=== PATIENT | male | born 1955 | race Caucasian/White ===

== ENCOUNTER → 2020-11-02 01:36 | Outpatient (CLI) | payer MEDICARE, OTHER, SELFPAY ==
[2020-11-02 19:56] LABS: SARS-CoV-2 RNA PCR Negative
== END ==
PROVIDERS: PCP Emergency Medicine; Visit Provider Internal Medicine Gastroenterology
DX: Z01.812 Encounter for preprocedural laboratory examination (principal); Z20.822 Contact with and (suspected) exposure to COVID-19
CPT/HCPCS: C9803; U0003; U0005

== ENCOUNTER 2020-11-05 02:19 | Day surgery (SDC) | payer MEDICARE, OTHER, SELFPAY ==
[2020-10-29 09:43] VITALS: BMI 26.5
[2020-11-05 06:21] VITALS: BP 103/84; PULSE 82; RESP 18; TEMP 36.4; O2SAT 96; BMI 25.9
[2020-11-05] MEDS: LACTATED RINGERS 1,000 ML 150 ML IV CONT (06:29)
--- NOTE | 2020-11-05 07:18 | P.PNAN_ITS ---
Anes - Initial Pre Proc Eval Procedure: Operation Date: 11/05/20 07:30 Proposed Procedures p Screening Colonoscopy - Nithin Noe MD Date/Time: 11/05/20 07:18 Surgeon: Nithin Noe MD Pre Op Diagnosis: family hx colon CA Patient Data Age: 65 Gender: M Height: 5 ft 10 in Weight: 81.9 kg Last Vital Signs Temp 97.5 F L 11/05/20 06:21 Pulse 82 11/05/20 06:21 Resp 18 11/05/20 06:21 BP 103/84 11/05/20 06:21 Pulse Ox 96 11/05/20 06:21 Allergies Allergy/AdvReac Type Severity Reaction Status Date / Time No Known Allergies Allergy Mild Verified 11/05/20 06:20 Home Medications Medication Instructions Recorded Confirmed Type temazepam 15 mg capsule 15 mg PO QHS PRN #30 cap 10/14/20 10/29/20 Rx Adults Multivitamin 1 tab-cap PO DAILY 10/29/20 10/29/20 History ferrous sulfate 324 mg PO DAILY 10/29/20 10/29/20 History Patient hx anesthesia problems: none Family hx anesthesia problems: none PMFSH Past Medical History Medical History Alcoholic hepatitis Erectile dysfunction Family history of colon cancer in mother GERD (gastroesophageal reflux disease) GERD without esophagitis History of colon polyps Normal colonoscopy 05/2012 Venereal disease Surgical History Surgical History History of hip surgery left - 2007 History of knee surgery History of right knee surgery Right knee - History of surgery on arm Left forearm - 2007 [place] teeth extracted Family History Family History Mother Colon cancer Father Lung cancer Social History Social History Social History: Patient drinks 2 cups of caffeine per day. Smoking status: Never smoker Second hand tobacco smoke exposure: No Smoking end date: 06/14/13 Additional smoking assessment comments: nicotine gum 2 mg - 5 to 6 a day Alcohol intake: never Substance use: never Substance use type: does not use Living arrangements: alone Gender identity (if verbalized by the patient): Male Spiritual care concerns: No Anes - Eval Final PreProcedure Day of Procedure 11/05/20 07:18 Patient weight: normal Heart: regular rate and rhythm Lungs: clear to auscultation Airway: Mallampati scale class II Neurological: alert and oriented Last oral intake: >/= 8 hours ASA classification: II Emergent: no Anesthetic plan: proceed Anesthesia type and monitoring: general GIVS and standard monitoring Informed Consent: The patient's anesthetic plan and its attendant risks and benefits were discussed with the patient/family/POA. Questions were solicited and answers provided to the satisfaction of the patient/family/POA.
--- NOTE | 2020-11-05 07:30 | PM.HPGS ---
History of Present Illness History of Present Illness Consent: Risks, benefits, and alternatives have been discussed and questions answered. Patient agrees to proceed with procedure. Chief complaint: family hx colon CA Narrative: Alejo Babb is a 65 year old male with mother colon cancer, his las colonoscopy ~ 8 years ago. Review of Systems Constitutional: Constitutional: Denies headache(s) and Denies weakness Eyes: Eyes: Denies blurry vision ENT: Reports Normal hearing present, Denies headache(s) and Denies neck pain Cardiovascular: Cardiovascular: Denies chest pain and Denies dyspnea Respiratory: Respiratory: Denies dyspnea Gastrointestinal: Gastrointestinal: Reports no additional gastrointestinal complaints Genitourinary: Genitourinary: Denies dysuria Musculoskeletal: Musculoskeletal: Denies neck pain Integumentary/Breasts: Skin/Breast: Denies dry skin Neurologic: Reports Normal hearing present, Denies headache(s) and Denies weakness Psychiatric: Psychiatric: Denies anxiety Endocrine: Endocrine: Denies change in body appearance Hematologic/Lymphatic: Hematologic/Lymphatic: Denies easy bleeding Allergic/Immunologic: Allergic/Immunologic: Denies urticaria PMFSH Past Medical History Medical History Alcoholic hepatitis Erectile dysfunction Family history of colon cancer in mother GERD (gastroesophageal reflux disease) GERD without esophagitis History of colon polyps Normal colonoscopy 05/2012 Venereal disease Surgical History Surgical History History of hip surgery left - 2007 History of knee surgery History of right knee surgery Right knee - History of surgery on arm Left forearm - 2007 [place] teeth extracted Family History Family History Mother Colon cancer Father Lung cancer Social History Social History Social History: Patient drinks 2 cups of caffeine per day. Smoking status: Never smoker Second hand tobacco smoke exposure: No Smoking end date: 06/14/13 Additional smoking assessment comments: nicotine gum 2 mg - 5 to 6 a day Alcohol intake: never Substance use: never Substance use type: does not use Living arrangements: alone Gender identity (if verbalized by the patient): Male Spiritual care concerns: No Meds Home Medications and Allergies Home Medications Medication Instructions Recorded Confirmed Type temazepam 15 mg capsule 15 mg PO QHS PRN #30 cap 10/14/20 10/29/20 Rx Adults Multivitamin 1 tab-cap PO DAILY 10/29/20 10/29/20 History ferrous sulfate 324 mg PO DAILY 10/29/20 10/29/20 History Allergies Allergy/AdvReac Type Severity Reaction Status Date / Time No Known Allergies Allergy Mild Verified 11/05/20 06:20 Vital Signs Vital Signs - 24 hr 11/05/20 06:21 Temperature 97.5 F L Pulse Rate 82 Respiratory Rate 18 Blood Pressure 103/84 Pulse Oximetry 96 Exam Const: General: comfortable and no acute distress HENMT: General nose exam: Normal nares present Eyes: General: appearance normal, both eyes and all related structures Neck: Neck: no JVD Resp: Auscultation: clear to auscultation bilaterally Cardio: Rate: regular rate Rhythm: regular rhythm GI: Inspection: non-distended GI Palp: Yes Soft to palpation Skin: General skin exam: normal color Neuro: General: gait normal Speech: normal speech Extrem: General: normal to inspection Psych: Mental Status: mental status grossly normal Assessment and Plan Assessment and plan (1) Family history of colon cancer in mother: Code(s): Z80.0 - Family history of malignant neoplasm of digestive organs Status: Acute Assessment and Plan: colonoscopy
[2020-11-05 07:49] VITALS: BP 94/71; PULSE 68; RESP 20; O2SAT 96
[2020-11-05 07:59] VITALS: BP 100/75; PULSE 60; RESP 26; O2SAT 96
[2020-11-05 08:09] VITALS: BP 118/78; PULSE 51; RESP 23; O2SAT 96
== END 2020-11-05 08:21 | disposition home or self-care (01) ==
PROVIDERS: PCP Emergency Medicine; Visit Provider Internal Medicine Gastroenterology
PROC: 0DJD8ZZ Inspection of Lower Intestinal Tract, Via Natural or Artificial Opening Endoscopic (ICD-10-PCS; CPT 45378; principal; 2020-11-05 07:30)
DX: Z12.11 Encounter for screening for malignant neoplasm of colon (principal); K64.8 Other hemorrhoids; Z80.0 Family history of malignant neoplasm of digestive organs; K70.10 Alcoholic hepatitis without ascites; K21.9 Gastro-esophageal reflux disease without esophagitis; Z86.010 Personal history of colon polyps; Z87.891 Personal history of nicotine dependence; Z86.19 Personal history of other infectious and parasitic diseases
CPT/HCPCS: G0105; J2001; J2704; J7120

== ENCOUNTER 2021-02-04 10:40 | Outpatient (CLI) | payer MEDICARE, OTHER, SELFPAY ==
[2021-02-04 11:37] LABS: Basophils Absolute Auto 0.1 K/mm3 (0.0-0.1); Basophils Percent Auto 0.7 % (0.2-1.2); Eosinophils Absolute Auto 0.5 K/mm3 (0-0.3); Eosinophils Percent Auto 6.9 % (0-4.4); Hematocrit 41.2 % (42.0-52.0); Hemoglobin 14.1 g/dL (14.0-18.0); Immature Granulocyte Absolute 0.01 K/mm3 (0.00-0.031); Immature Granulocyte Percent A 0.1 % (0-0.5); Lymphocytes Absolute Auto 1.46 K/mm3 (0.9-3.2); Lymphocytes Percent Auto 21.9 % (18.3-44.2); Mean Corpuscular HGB Conc 34.2 g/dl (32-36); Mean Corpuscular Hemoglobin 31.3 pg (26-34); Mean Corpuscular Volume 91.4 fl (80-100); Mean Platelet Volume 8.9 fl (7.4-10.4); Monocytes Absolute Auto 0.7 K/mm3 (0.1-0.6); Monocytes Percent Auto 10.6 % (2.6-8.5); Neutrophils Percent Auto 59.8 % (45.5-73.1); Platelet Count Result 256 k/mm3 (150-375); Red Blood Count 4.51 M/mm3 (4.6-6.20); Red Cell Distribution Width 12.2 % (11.5-14.5); White Blood Count 6.7 K/mm3 (4.5-10.0)
[2021-02-04 11:47] LABS: Alanine Aminotransferase 12 U/L (4-50); Albumin Level 4.1 g/dL (3.5-5.1); Alkaline Phosphatase 42 U/L (38-126); Anion Gap 7 mmol/L (8-16); Aspartate Amino Transferase 23 U/L (17-59); Bilirubin,Total 0.3 mg/dL (0.2-1.3); Blood Urea Nitrogen 9 mg/dL (9-20); Calcium 8.6 mg/dL (8.4-10.2); Carbon Dioxide 25 mmol/L (22-30); Chloride 101 mmol/L (98-107); Cholesterol 127 mg/dL (0-200); Estimated Glomerular Filt Rate > 60; Glucose 94 mg/dL (65-110); HDL Direct 42 mg/dL; Potassium 4.5 mmol/L (3.4-5.0); Sodium 133 mmol/L (137-145); Triglycerides 58 mg/dL (<150)
[2021-02-04 11:59] LABS: LDL Cholesterol Direct 58 mg/dL
[2021-02-04 12:17] LABS: Prostate Specific Antigen 2.4 ng/mL (< OR = 4.0)
== END 2021-02-04 10:41 | disposition home or self-care (01) ==
PROVIDERS: PCP Emergency Medicine; Visit Provider Emergency Medicine
DX: Z12.5 Encounter for screening for malignant neoplasm of prostate (principal); N52.9 Male erectile dysfunction, unspecified; Z13.220 Encounter for screening for lipoid disorders; Z51.81 Encounter for therapeutic drug level monitoring; Z79.899 Other long term (current) drug therapy
CPT/HCPCS: 36415; 80053; 80061; 84153; 84443; 85025; G0103

== ENCOUNTER 2021-08-12 10:21 | Outpatient (CLI) | payer MEDICARE, OTHER, SELFPAY ==
[2021-08-12 10:49] LABS: Alanine Aminotransferase 13 U/L (4-50); Albumin Level 4.1 g/dL (3.5-5.1); Alkaline Phosphatase 49 U/L (38-126); Anion Gap 7 mmol/L (8-16); Aspartate Amino Transferase 24 U/L (17-59); Bilirubin,Total 0.2 mg/dL (0.2-1.3); Blood Urea Nitrogen 11 mg/dL (9-20); Calcium 8.4 mg/dL (8.4-10.2); Carbon Dioxide 27 mmol/L (22-30); Chloride 104 mmol/L (98-107); Cholesterol 152 mg/dL (0-200); Estimated Glomerular Filt Rate > 60; Glucose 120 mg/dL (65-110); HDL Direct 44 mg/dL; Potassium 4.4 mmol/L (3.4-5.0); Sodium 138 mmol/L (137-145); Triglycerides 84 mg/dL (<150)
[2021-08-12 11:00] LABS: LDL Cholesterol Direct 76 mg/dL
== END 2021-08-12 10:22 | disposition home or self-care (01) ==
PROVIDERS: PCP Emergency Medicine; Visit Provider Emergency Medicine
DX: N52.9 Male erectile dysfunction, unspecified (principal); Z13.220 Encounter for screening for lipoid disorders
CPT/HCPCS: 36415; 80053; 80061

== ENCOUNTER 2021-08-16 11:26 | Outpatient (CLI) | payer MEDICARE, OTHER, SELFPAY ==
[2021-08-16 12:02] LABS: Hemoglobin A1C 5.1 % (<5.7)
== END 2021-08-16 11:27 | disposition home or self-care (01) ==
PROVIDERS: PCP Emergency Medicine; Visit Provider Emergency Medicine
DX: R73.09 Other abnormal glucose (principal)
CPT/HCPCS: 36415; 83036

== ENCOUNTER 2021-10-08 01:06 | Day surgery (SDC) | payer MEDICARE, OTHER, SELFPAY ==
[2021-09-30 09:33] VITALS: BMI 27.3
[2021-10-08 08:58] VITALS: BP 98/57; PULSE 57; RESP 18; TEMP 36.2; O2SAT 97; BMI 26.6
[2021-10-08] MEDS: LACTATED RINGERS 1,000 ML 150 ML IV CONT (09:15)
--- NOTE | 2021-10-08 10:04 | WPDANESEPPF ---
Anes - Initial Pre Proc Eval Procedure: Operation Date: 10/08/21 10:00 Proposed Procedures p Esophagogastroduodenoscopy - Nithin Noe MD Date/Time: 10/08/21 10:04 Surgeon: Nithin Noe MD Pre Op Diagnosis: dysphagia Patient Data Age: 66 Gender: M Height: 1.78 m Weight: 84.1 kg Last Vital Signs Temp 97.2 F L 10/08/21 08:58 Pulse 57 L 10/08/21 08:58 Resp 18 10/08/21 08:58 BP 98/57 L 10/08/21 08:58 Pulse Ox 97 10/08/21 08:58 Allergies Allergy/AdvReac Type Severity Reaction Status Date / Time No Known Allergies Allergy Mild Verified 10/08/21 09:06 Home Medications Medication Instructions Recorded Confirmed Type Adults Multivitamin 1 tab-cap PO DAILY 10/29/20 10/08/21 History ferrous sulfate 324 mg PO DAILY 10/29/20 10/08/21 History esomeprazole magnesium 40 mg 40 mg PO DAILY #30 cap 08/25/21 10/08/21 Rx capsule,delayed release fish [id number] C-vit E 1 g PO DAILY 09/30/21 10/08/21 History Patient hx anesthesia problems: none Family hx anesthesia problems: none Results Review: All pre-operative results and documents have been reviewed as part of the pre-operative evaluation. [facility] Past Medical History Medical History Alcoholic hepatitis Erectile dysfunction Family history of colon cancer in mother GERD (gastroesophageal reflux disease) GERD without esophagitis History of colon polyps Normal colonoscopy 05/2012 Venereal disease Surgical History Surgical History History of hip surgery left - 2007 History of knee surgery History of right knee surgery Right knee - History of surgery on arm Left forearm - 2007 [place] teeth extracted Family History Family History Mother Colon cancer Father Lung cancer Social History Social History Social History: Patient drinks 2 cups of caffeine per day. Smoking packs per day: 1 Smoking cigarettes per day: 20.0 Years smoked: 35 Smoking pack-years: 35.00 Smoking status: Former smoker Tobacco type: cigarettes Second hand tobacco smoke exposure: No Smoking end date: 06/14/13 Additional smoking assessment comments: nicotine gum 2 mg - 5 to 6 a day Alcohol intake: never Alcohol use details: quit drinking around 2012 Substance use: never Substance use type: does not use Living arrangements: alone Gender identity (if verbalized by the patient): Male Sexual Orientation (if Verbalized by the Patient): Straight or Heterosexual Spiritual care concerns: No Anes - Eval Final PreProcedure Day of Procedure 10/08/21 10:04 Patient weight: normal Heart: regular rate and rhythm Lungs: clear to auscultation Airway: Mallampati scale class II Neurological: alert and oriented Last oral intake: >/= 8 hours ASA classification: II Emergent: no Anesthetic plan: proceed Anesthesia type and monitoring: general GIVS and standard monitoring Results Review: All pre-operative results and documents have been reviewed as part of the pre-operative evaluation. Informed Consent: The patient's anesthetic plan and its attendant risks and benefits were discussed with the patient/family/POA. Questions were solicited and answers provided to the satisfaction of the patient/family/POA.
--- NOTE | 2021-10-08 10:23 | PM.HPGS ---
History of Present Illness History of Present Illness Consent: Risks, benefits, and alternatives have been discussed and questions answered. Patient agrees to proceed with procedure. Chief complaint: dysphagia Narrative: Alejo Babb is a 66 year old male with gerd using nexium as needed (not every day because was having diarrhea), lately with more dysphagia to solids. Review of Systems Constitutional: Constitutional: Denies headache(s) and Denies weakness Eyes: Eyes: Denies blurry vision ENT: Reports Normal hearing present, Denies headache(s) and Denies neck pain Cardiovascular: Cardiovascular: Denies chest pain and Denies dyspnea Respiratory: Respiratory: Denies dyspnea Gastrointestinal: Gastrointestinal: Reports no additional gastrointestinal complaints Genitourinary: Genitourinary: Denies dysuria Musculoskeletal: Musculoskeletal: Denies neck pain Integumentary/Breasts: Skin/Breast: Denies dry skin Neurologic: Reports Normal hearing present, Denies headache(s) and Denies weakness Psychiatric: Psychiatric: Denies anxiety Endocrine: Endocrine: Denies change in body appearance Hematologic/Lymphatic: Hematologic/Lymphatic: Denies easy bleeding Allergic/Immunologic: Allergic/Immunologic: Denies urticaria PMFSH Past Medical History Medical History Alcoholic hepatitis Erectile dysfunction Family history of colon cancer in mother GERD (gastroesophageal reflux disease) GERD without esophagitis History of colon polyps Normal colonoscopy 05/2012 Venereal disease Surgical History Surgical History History of hip surgery left - 2007 History of knee surgery History of right knee surgery Right knee - History of surgery on arm Left forearm - 2007 [place] teeth extracted Family History Family History Mother Colon cancer Father Lung cancer Social History Social History Social History: Patient drinks 2 cups of caffeine per day. Smoking packs per day: 1 Smoking cigarettes per day: 20.0 Years smoked: 35 Smoking pack-years: 35.00 Smoking status: Former smoker Tobacco type: cigarettes Second hand tobacco smoke exposure: No Smoking end date: 06/14/13 Additional smoking assessment comments: nicotine gum 2 mg - 5 to 6 a day Alcohol intake: never Alcohol use details: quit drinking around 2012 Substance use: never Substance use type: does not use Living arrangements: alone Gender identity (if verbalized by the patient): Male Sexual Orientation (if Verbalized by the Patient): Straight or Heterosexual Spiritual care concerns: No Meds Home Medications and Allergies Home Medications Medication Instructions Recorded Confirmed Type Adults Multivitamin 1 tab-cap PO DAILY 10/29/20 10/08/21 History ferrous sulfate 324 mg PO DAILY 10/29/20 10/08/21 History esomeprazole magnesium 40 mg 40 mg PO DAILY #30 cap 08/25/21 10/08/21 Rx capsule,delayed release fish [id number] C-vit E 1 g PO DAILY 09/30/21 10/08/21 History Allergies Allergy/AdvReac Type Severity Reaction Status Date / Time No Known Allergies Allergy Mild Verified 10/08/21 09:06 Vital Signs Vital Signs - 24 hr 10/08/21 08:58 Temperature 97.2 F L Pulse Rate 57 L Respiratory Rate 18 Blood Pressure 98/57 L Pulse Oximetry 97 Exam Const: General: comfortable and no acute distress HENMT: General nose exam: Normal nares present Eyes: General: appearance normal, both eyes and all related structures Neck: Neck: no JVD Resp: Auscultation: clear to auscultation bilaterally Cardio: Rate: regular rate Rhythm: regular rhythm GI: Inspection: non-distended GI Palp: Yes Soft to palpation Skin: General skin exam: normal color Neuro: General: gait cely
[2021-10-08 10:39] VITALS: BP 107/66; PULSE 44; RESP 21; O2SAT 97
[2021-10-08 10:49] VITALS: BP 116/69; PULSE 44; RESP 25; O2SAT 97
[2021-10-08 10:59] VITALS: BP 120/68; PULSE 49; RESP 21; O2SAT 100
== END 2021-10-08 11:09 | disposition home or self-care (01) ==
PROVIDERS: PCP Emergency Medicine; Visit Provider Internal Medicine Gastroenterology
PROC: 0DJ08ZZ Inspection of Upper Intestinal Tract, Via Natural or Artificial Opening Endoscopic (ICD-10-PCS; CPT 43235; principal; 2021-10-08 10:00)
DX: K21.9 Gastro-esophageal reflux disease without esophagitis (principal); K22.2 Esophageal obstruction; K29.70 Gastritis, unspecified, without bleeding; Z87.891 Personal history of nicotine dependence
CPT/HCPCS: 43249; 43239; 88305; C1726; J2704; J7120

== ENCOUNTER 2022-02-25 11:33 | Outpatient (CLI) | payer MEDICARE, OTHER, SELFPAY ==
--- NOTE | ~2022-02-25 | XR_ITS ---
EXAM: XR knee LT 2V, XR knee RT 2V DATE: 02/25/2022 12:19 HISTORY: R52 - Pain, unspecified, no injury . COMPARISON: None available. FINDINGS: Decreased mineralization. No fracture or dislocation. No lytic or blastic lesion. Moderate left medial joint space narrowing. Moderate left tricompartmental osteophytosis and patellar subchon dral sclerosis. Quadriceps enthesopathy on the left. Right total knee arthroplasty, without complicat ion.. No erosion or periosteal change. Soft tissues within normal limits. Moderate right knee effusio n IMPRESSION: Uncomplicated right knee total arthroplasty. Moderate tricompartmental left knee osteoart hritis. Reviewed, dictated and finalized at location K. IMPRESSION: Uncomplicated right knee total arthroplasty. Moderate tricompartmen antoni left knee osteoarthritis.
--- NOTE | ~2022-02-25 | XR_ITS ---
EXAMINATION: XR lumbar spine 2-3V DATE: 02/25/2022 12:19 INDICATION: Low back pain TECHNIQUE: Anteroposterior and lateral views of the lumbar spine, and cone-down lateral view of the l umbosacral junction were obtained. COMPARISON: None. FINDINGS: Bone alignment is normal. There is no fracture. There is mild loss of intervertebral disc s pace height at L5-S1. Small degenerative osteophytes project from the anterior endplates of multiple vertebral bodies. There is moderate facet osteoarthritis of the lower lumbar spine. Calcified atheros clerosis is noted. IMPRESSION: 1. Mild lumbar spondylosis without acute findings. Reviewed, dictated and finalized at location B.
--- NOTE | ~2022-02-25 | XR_ITS ---
EXAMINATION: XR hip LT min 2V DATE: 02/25/2022 12:18 INDICATION: Left hip pain. TECHNIQUE: 2 views of left hip were obtained. COMPARISON: None. FINDINGS: There is a bipolar left hip hemiarthroplasty in near-anatomic alignment with cables around the proximal femur. No fracture. No periprosthetic lucencies to suggest loosening or infection. There are osteophytes of the acetabulum. There is heterotopic ossification adjacent to left hip. IMPRESSION: 1. Bipolar left hip hemiarthroplasty in near-anatomic alignment. 2. Mild left hip osteoarthritis. Reviewed, dictated and finalized at location A.
[2022-02-25 12:34] LABS: Basophils Absolute Auto 0.1 K/mm3 (0.0-0.1); Basophils Percent Auto 0.8 % (0.2-1.2); Eosinophils Absolute Auto 0.3 K/mm3 (0-0.3); Eosinophils Percent Auto 3.4 % (0-4.4); Hematocrit 42.1 % (42.0-52.0); Hemoglobin 14.3 g/dL (14.0-18.0); Immature Granulocyte Absolute 0.01 K/mm3 (0.00-0.031); Immature Granulocyte Percent A 0.1 % (0-0.5); Lymphocytes Absolute Auto 1.58 K/mm3 (0.9-3.2); Mean Corpuscular Hemoglobin 31.2 pg (26-34); Mean Corpuscular Volume 91.7 fl (80-100); Mean Platelet Volume 8.9 fl (7.4-10.4); Monocytes Absolute Auto 0.9 K/mm3 (0.1-0.6); Monocytes Percent Auto 11.5 % (2.6-8.5); Neutrophils Absolute Auto 4.8 K/mm3 (1.3-6.7); Neutrophils Percent Auto 63.2 % (45.5-73.1); Platelet Count Result 244 k/mm3 (150-375); Red Blood Count 4.59 M/mm3 (4.6-6.20); Red Cell Distribution Width 12.7 % (11.5-14.5); White Blood Count 7.5 K/mm3 (4.5-10.0)
[2022-02-25 12:45] LABS: Alanine Aminotransferase 21 U/L (6-50); Albumin Level 4.2 g/dL (3.5-5.1); Alkaline Phosphatase 51 U/L (38-126); Anion Gap 9 mmol/L (8-16); Aspartate Amino Transferase 40 U/L (17-59); Bilirubin,Total 0.7 mg/dL (0.2-1.3); Blood Urea Nitrogen 10 mg/dL (9-20); Calcium 8.9 mg/dL (8.4-10.2); Carbon Dioxide 25 mmol/L (22-30); Chloride 102 mmol/L (98-107); Estimated Glomerular Filt Rate > 60; Glucose 116 mg/dL (65-110); Potassium 4.8 mmol/L (3.4-5.0); Sodium 136 mmol/L (137-145)
[2022-02-25 13:14] LABS: Prostate Specific Antigen 2.7 ng/mL (< OR = 4.0)
== END 2022-02-25 11:34 | disposition home or self-care (01) ==
PROVIDERS: PCP Emergency Medicine; Visit Provider Emergency Medicine
DX: Z12.5 Encounter for screening for malignant neoplasm of prostate (principal); M16.12 Unilateral primary osteoarthritis, left hip; R53.83 Other fatigue; K21.9 Gastro-esophageal reflux disease without esophagitis; I70.0 Atherosclerosis of aorta; M47.816 Spondylosis without myelopathy or radiculopathy, lumbar region; M17.0 Bilateral primary osteoarthritis of knee; M25.461 Effusion, right knee
CPT/HCPCS: 36415; 72100; 73502; 73560; 80053; 84153; 85025; G0103

== ENCOUNTER 2023-02-24 13:27 | Outpatient (CLI) | payer MEDICARE, OTHER, SELFPAY ==
[2023-02-24 14:15] LABS: Hematocrit 41.4 % (42.0-52.0); Mean Corpuscular HGB Conc 33.8 g/dl (32-36); Mean Corpuscular Volume 91.8 fl (80-100); Mean Platelet Volume 9.2 fl (7.4-10.4); Platelet Count Result 264 k/mm3 (150-375); Red Blood Count 4.51 M/mm3 (4.6-6.20); Red Cell Distribution Width 12.5 % (11.5-14.5)
[2023-02-24 14:32] LABS: Alanine Aminotransferase 14 U/L (6-50); Albumin Level 4.1 g/dL (3.5-5.1); Alkaline Phosphatase 46 U/L (38-126); Anion Gap 9 mmol/L (8-16); Aspartate Amino Transferase 23 U/L (17-59); Bilirubin,Total 0.4 mg/dL (0.2-1.3); Blood Urea Nitrogen 10 mg/dL (9-20); Calcium 8.5 mg/dL (8.4-10.2); Carbon Dioxide 24 mmol/L (22-30); Chloride 102 mmol/L (98-107); Estimated Glomerular Filt Rate > 60; Glucose 101 mg/dL (65-110); Potassium 4.1 mmol/L (3.4-5.0); Sodium 135 mmol/L (137-145)
[2023-02-24 15:00] LABS: Prostate Specific Antigen 3.2 ng/mL (< OR = 4.0)
[2023-02-27 23:26] LABS: Vitamin D 1,25 (OH)2 Total 26 pg/mL (18-72); Vitamin D2 1,25 (OH)2 <8 pg/mL; Vitamin D3 1,25 (OH)2 26 pg/mL
== END 2023-02-24 13:28 | disposition home or self-care (01) ==
PROVIDERS: PCP Emergency Medicine; Visit Provider Emergency Medicine
DX: Z12.5 Encounter for screening for malignant neoplasm of prostate (principal); R53.83 Other fatigue; E55.9 Vitamin D deficiency, unspecified
CPT/HCPCS: 36415; 80053; 82652; 84153; 85027; G0103

== ENCOUNTER 2023-08-23 13:56 | Outpatient (CLI) | payer MEDICARE, OTHER, SELFPAY ==
[2023-08-23 15:02] LABS: Alanine Aminotransferase 11 U/L (6-50); Albumin Level 4.1 g/dL (3.5-5.1); Alkaline Phosphatase 61 U/L (38-126); Anion Gap 5 mmol/L (8-16); Aspartate Amino Transferase 23 U/L (17-59); Bilirubin,Total 0.8 mg/dL (0.2-1.3); Blood Urea Nitrogen 10 mg/dL (9-20); Calcium 8.5 mg/dL (8.4-10.2); Carbon Dioxide 26 mmol/L (22-30); Chloride 101 mmol/L (98-107); Estimated Glomerular Filt Rate > 60; Glucose 104 mg/dL (65-110); Potassium 3.9 mmol/L (3.4-5.0); Sodium 132 mmol/L (137-145)
[2023-08-23 17:03] LABS: Vitamin D 25 Hydroxy 45.8 ng/mL
== END 2023-08-23 13:57 | disposition home or self-care (01) ==
LOC: ANHLAB 13:59
PROVIDERS: PCP Emergency Medicine; Visit Provider Emergency Medicine
DX: E55.9 Vitamin D deficiency, unspecified (principal); R53.83 Other fatigue
CPT/HCPCS: 36415; 80053; 82306

== ENCOUNTER 2024-02-22 10:46 | Outpatient (CLI) | payer MEDICARE, OTHER, SELFPAY ==
[2024-02-22 11:25] LABS: Alanine Aminotransferase 11 U/L (6-50); Albumin Level 4.3 g/dL (3.5-5.1); Alkaline Phosphatase 58 U/L (38-126); Anion Gap 8 mmol/L (4-12); Aspartate Amino Transferase 32 U/L (17-59); Bilirubin,Total 0.5 mg/dL (0.2-1.3); Blood Urea Nitrogen 14 mg/dL (9-20); Calcium 8.8 mg/dL (8.4-10.2); Carbon Dioxide 29 mmol/L (22-30); Chloride 100 mmol/L (98-107); Estimated Glomerular Filt Rate > 60; Glucose 102 mg/dL (65-110); Potassium 4.6 mmol/L (3.4-5.0); Sodium 137 mmol/L (137-145)
[2024-02-22 11:59] LABS: Vitamin D 25 Hydroxy 35.3 ng/mL
== END 2024-02-22 10:47 | disposition home or self-care (01) ==
PROVIDERS: PCP Emergency Medicine; Visit Provider Emergency Medicine
DX: E78.5 Hyperlipidemia, unspecified (principal); E55.9 Vitamin D deficiency, unspecified
CPT/HCPCS: 36415; 80053; 82306

== ENCOUNTER 2024-03-10 10:15 | Outpatient (CLI) | payer MEDICARE, OTHER, SELFPAY ==
--- NOTE | ~2024-03-10 | XR_ITS ---
XR hand RT 2V Ordering provider: Jet Ospina MD History: . PAIN IN 4TH DIGIT PIP JOINT . Comparison: None. FINDINGS: BONES: No acute fracture or dislocation. Old boxer's fracture in the fifth metacarpal bone. Cystic ch anges in multiple carpal bones. JOINT SPACES: Severe osteoarthritic changes of the proximal interphalangeal joint of the fifth finger . Osteoarthritic changes of the first metacarpophalangeal joint and interphalangeal joint. Osteoarthr itic changes of the distal interphalangeal joints. SOFT TISSUES: Normal. IMPRESSION: No acute osseous abnormality right hand. Reviewed, dictated and finalized at location A.
== END 2024-03-10 10:16 | disposition home or self-care (01) ==
PROVIDERS: PCP Emergency Medicine; Visit Provider Emergency Medicine
DX: M79.644 Pain in right finger(s) (principal)
CPT/HCPCS: 73120

== ENCOUNTER 2024-03-16 13:58 | Outpatient (CLI) | payer MEDICARE, OTHER, SELFPAY ==
[2024-03-16 15:04] LABS: IFOB Positive Control Positive; Immunochemical Fecal Occult Bl Negative (N)
[2024-03-16 15:40] LABS: Toxigenic C. Diff NEGATIVE (NEGATIVE)
[2024-03-21 15:18] LABS: Fecal Fat, Ql Normal (Normal)
[2024-03-24 18:13] LABS: Calprotectin, Stool 40 mcg/g
[2024-03-24 19:28] LABS: Pancreatic Elastase, Stool >500 mcg/g
== END 2024-03-16 13:59 | disposition home or self-care (01) ==
LOC: ANHLAB 14:00
PROVIDERS: PCP Emergency Medicine; Visit Provider Nurse Practitioner Family
DX: R19.7 Diarrhea, unspecified (principal)
CPT/HCPCS: 82274; 82653; 82705; 83993; 87269; 87493

== ENCOUNTER 2024-03-21 07:50 | Outpatient (CLI) | payer MEDICARE, OTHER, SELFPAY | END 2024-03-21 07:51 | disposition home or self-care (01) | LOC: ANHAUDIO 07:52 | PROVIDERS: PCP Emergency Medicine; Visit Provider Emergency Medicine | DX: H90.3 Sensorineural hearing loss, bilateral (principal) | CPT/HCPCS: 92557; 92567 ==

== ENCOUNTER 2024-04-18 00:25 | Day surgery (SDC) | payer MEDICARE, OTHER, SELFPAY ==
[2024-04-10 16:06] VITALS: BMI 26.5
[2024-04-18 07:47] VITALS: BP 111/81; PULSE 71; RESP 18; TEMP 36.1; O2SAT 97; BMI 26.0
[2024-04-18] MEDS: LACTATED RINGERS 1,000 ML 150 ML IV CONT (07:55)
[2024-04-18] MEDS: BENZOCAINE (*SP) 60 ML SPRAY CAN (HURRICAINE) 1 SPRAY MUCOUS MEM (09:49)
--- NOTE | 2024-04-18 09:53 | PM.IMHP ---
H&P: HPI History of Present Illness Date/Time: 04/18/24 09:53 Chief Complaint: Dysphagia Narrative: the patient has been complaining of dysphagia for around 2 years. Last year a balloon dilatation of a Schatzki ring with temporary success. He has recurrent dysphagia Review of Systems Review of Systems: All systems reviewed & are unremarkable except as noted in HPI and below PMFSH Past Medical History Medical History (Updated 03/15/24 @ 10:37 by Crystal Dominguez APN-Marv) Alcoholic hepatitis Dysphagia Erectile dysfunction Esophageal ring Family history of colon cancer in mother GERD (gastroesophageal reflux disease) GERD without esophagitis History of colon polyps Normal colonoscopy 05/2012 Skin lesion Venereal disease Surgical History Surgical History History of hip surgery left - 2007 History of knee surgery History of right knee surgery Right knee - History of surgery on arm Left forearm - 2007 [place] teeth extracted Family History Family History Mother Colon cancer Father Lung cancer Social History Social History Social History: Patient drinks 2 cups of caffeine per day. Smoking packs per day: 1 Smoking cigarettes per day: 20.0 Years smoked: 35 Smoking pack-years: 35.00 Smoking status: Former smoker Tobacco type: cigarettes Second hand tobacco smoke exposure: No Smoking end date: 06/14/13 Additional smoking assessment comments: nicotine gum 2 mg - 5 to 6 a day Alcohol intake: former Drinks per week: 80 Alcohol use details: quit 2012 Substance use: never Substance use type: does not use Do You Feel Safe in your Home?: Yes Lack of Transportation: No Lack of Food: Never True Current Housing: I Have Housing Concerned About Future Housing: No Difficulty Paying Gas/Electric Bills: No Difficulty Paying for Meds: No Currently Unemployed: No Education: High School Diploma/GED Difficulty w/ Childcare or Family Care: No Living arrangements: alone Occupation/Education: retired Gender identity (if verbalized by the patient): Male Sexual Orientation (if Verbalized by the Patient): Straight or Heterosexual Spiritual care concerns: No Meds Home Medications and Allergies Home Medications Medication Instructions Recorded Confirmed Type Adults Multivitamin 1 tab-cap PO DAILY 10/29/20 04/18/24 History ferrous sulfate 324 mg (65 mg 324 mg PO DAILY 10/29/20 04/18/24 History iron) tablet,delayed release fish [id number] C-vit E 2,000 1 g PO DAILY 09/30/21 04/18/24 History mg-650 mg-12 mg/2.5 g emulsion packt temazepam 15 mg capsule 15 mg PO QHS PRN sleep #30 caps 03/10/24 04/18/24 Rx Eye Complex 1 tab-cap PO DAILY 04/10/24 04/18/24 History aspirin 81 mg tablet,delayed 81 mg PO DAILY 04/10/24 04/18/24 History release gregoria root 325 mg-pyridoxine HCl 1 cap PO DAILY 04/10/24 04/18/24 History (vitamin B6) 25 mg capsule soy protein 1 ea PO DAILY 04/10/24 04/18/24 History Allergies Allergy/AdvReac Type Severity Reaction Status Date / Time No Known Allergies Allergy Mild Verified 04/18/24 07:45 Vital Signs Vital Signs - 24 hr 04/18/24 07:47 Temperature 96.9 F L Pulse Rate 71 Respiratory Rate 18 Blood Pressure 111/81 Pulse Oximetry 97 Oxygen Delivery Room Air Exam Const: General: cooperative and healthy appearing Resp: Effort & Inspection: normal respiratory effort and able to speak in complete sentences Auscultation: clear to auscultation bilaterally Cardio: Rate: regular rate Rhythm: regular rhythm GI: Inspection: normal to inspection GI Palp: No No hepatosplenomegaly present Auscultation: normal bowel sounds Rectal Exam: deferred Skin: General skin exam: normal color Psych: Appearance: grossly normal Mental Status: mental status grossly normal Assessment and Plan Assessment and plan (1) Esophageal ring: Code(s): K22.2 - Esophageal obstruction Status: Acute Assessment and Plan: The patient is deemed a good candidate for the procedure. Consent signed. Will proceed. (2) Dysphagia: Code(s): R13.10 - Dysphagia, unspecified Status: Acute
[2024-04-18 10:12] VITALS: BP 98/61; PULSE 43; RESP 22; O2SAT 99
[2024-04-18 10:22] VITALS: BP 115/71; PULSE 43; RESP 23; O2SAT 99
[2024-04-18 10:32] VITALS: BP 112/70; PULSE 44; RESP 20; O2SAT 100
== END 2024-04-18 10:40 | disposition home or self-care (01) ==
PROVIDERS: PCP Emergency Medicine; Referring Provider Nurse Practitioner Family; Visit Provider Internal Medicine Gastroenterology
PROC: 0DJ08ZZ Inspection of Upper Intestinal Tract, Via Natural or Artificial Opening Endoscopic (ICD-10-PCS; CPT 43235; principal; 2024-04-18 09:00)
DX: K22.2 Esophageal obstruction (principal); K70.10 Alcoholic hepatitis without ascites; N52.9 Male erectile dysfunction, unspecified; K21.9 Gastro-esophageal reflux disease without esophagitis; Z79.82 Long term (current) use of aspirin; Z98.890 Other specified postprocedural states; Z87.891 Personal history of nicotine dependence; Z86.0100 Personal history of colon polyps, unspecified; Z87.19 Personal history of other diseases of the digestive system; Z80.0 Family history of malignant neoplasm of digestive organs; Z80.1 Family history of malignant neoplasm of trachea, bronchus and lung
CPT/HCPCS: 43249; 88305; C1726; J2003; J2704; J7120

== ENCOUNTER 2024-09-04 12:29 | Outpatient (CLI) | payer MEDICARE, SELFPAY ==
[2024-09-04 13:06] LABS: Hematocrit 43.2 % (42.0-52.0); Hemoglobin 14.4 g/dL (14.0-18.0); Mean Corpuscular HGB Conc 33.3 g/dl (32-36); Mean Corpuscular Hemoglobin 30.6 pg (26-34); Mean Corpuscular Volume 91.9 fl (80-100); Mean Platelet Volume 8.9 fl (7.4-10.4); Platelet Count Result 304 k/mm3 (150-375); Red Cell Distribution Width 12.9 % (11.5-14.5); White Blood Count 7.1 K/mm3 (4.5-10.0)
[2024-09-04 13:17] LABS: Alanine Aminotransferase 13 U/L (6-50); Albumin Level 4.5 g/dL (3.5-5.1); Alkaline Phosphatase 68 U/L (38-126); Anion Gap 10 mmol/L (4-12); Aspartate Amino Transferase 21 U/L (17-59); Bilirubin,Total 0.6 mg/dL (0.2-1.3); Blood Urea Nitrogen 9 mg/dL (9-20); Carbon Dioxide 26 mmol/L (22-30); Chloride 102 mmol/L (98-107); Cholesterol 155 mg/dL (0-200); Estimated Glomerular Filt Rate > 60; Glucose 102 mg/dL (65-110); HDL Direct 49 mg/dL; Potassium 4.1 mmol/L (3.4-5.0); Sodium 138 mmol/L (137-145); Triglycerides 84 mg/dL (<150)
[2024-09-04 13:28] LABS: LDL Cholesterol Direct 70 mg/dL
[2024-09-04 13:48] LABS: Prostate Specific Antigen 5.9 ng/mL (< OR = 4.0)
[2024-09-04 13:57] LABS: Vitamin D 25 Hydroxy 39.4 ng/mL
== END 2024-09-04 12:30 | disposition home or self-care (01) ==
PROVIDERS: PCP Emergency Medicine; Visit Provider Nurse Practitioner Family
DX: R19.7 Diarrhea, unspecified (principal); E55.9 Vitamin D deficiency, unspecified; E78.5 Hyperlipidemia, unspecified; I10 Essential (primary) hypertension; Z12.5 Encounter for screening for malignant neoplasm of prostate
CPT/HCPCS: 36415; 80053; 80061; 82306; 84153; 84443; 85027; G0103

== ENCOUNTER 2024-09-12 14:58 | Outpatient (CLI) | payer MEDICARE, SELFPAY ==
[2024-09-12 17:06] LABS: Toxigenic C. Diff NEGATIVE (NEGATIVE)
== END 2024-09-12 14:59 | disposition home or self-care (01) ==
LOC: ANHLAB 14:59
PROVIDERS: PCP Emergency Medicine; Visit Provider Emergency Medicine
DX: R19.7 Diarrhea, unspecified (principal)
CPT/HCPCS: 87177; 87209; 87493; 89055

== ENCOUNTER 2025-03-05 11:01 | Outpatient (CLI) | payer MEDICARE, SELFPAY ==
[2025-03-05 11:39] LABS: Hematocrit 40.4 % (42.0-52.0); Hemoglobin 13.6 g/dL (14.0-18.0); Immature Granulocyte Percent A 0.2 % (0-0.5); Lymphocytes Absolute Auto 1.57 K/mm3 (0.9-3.2); Mean Corpuscular HGB Conc 33.7 g/dl (32-36); Mean Corpuscular Hemoglobin 31.0 pg (26-34); Mean Corpuscular Volume 92.0 fl (80-100); Nucleated Red Blood Cells Absolute Auto 0.000 K/mm3 (0.0-0.012); Nucleated Red Blood Cells Perc 0.0 % (0.0-0.2); Platelet Count Result 253 k/mm3 (150-375); Red Blood Count 4.39 M/mm3 (4.6-6.20); White Blood Count 5.7 K/mm3 (4.5-10.0)
[2025-03-05 12:08] LABS: Alanine Aminotransferase 13 U/L (6-50); Albumin Level 4.1 g/dL (3.5-5.1); Alkaline Phosphatase 46 U/L (38-126); Anion Gap 6 mmol/L (4-12); Aspartate Amino Transferase 29 U/L (17-59); Bilirubin,Total 0.7 mg/dL (0.2-1.3); Blood Urea Nitrogen 12 mg/dL (9-20); Calcium 8.6 mg/dL (8.4-10.2); Carbon Dioxide 28 mmol/L (22-30); Chloride 99 mmol/L (98-107); Estimated Glomerular Filt Rate > 60; Glucose 101 mg/dL (65-110); Potassium 5.1 mmol/L (3.4-5.0); Sodium 133 mmol/L (137-145); Total Protein 7.4 g/dL (6.3-8.2)
== END 2025-03-05 11:02 | disposition home or self-care (01) ==
PROVIDERS: PCP Emergency Medicine; Visit Provider Emergency Medicine
DX: E78.5 Hyperlipidemia, unspecified (principal); E55.9 Vitamin D deficiency, unspecified
CPT/HCPCS: 36415; 80053; 82306; 85025